=== PATIENT | male | born 1940 | race Caucasian/White ===

== ENCOUNTER → 2016-11-19 | Outpatient (CLI) | payer MEDICARE ==
[~2016-11-19] MED LIST: ACID CONTROL150 MG PO; ALPRAZOLAM0.5 MG PO; ASPIR 8181 MG PO; ATROVENT INH S2.5 ML INH; BROVANA15 MCG/2 M INH; CENTRUM SILVER1 EAC1 PO; COREG 3.125M3.125 MG PO; COUMADIN3 MG PO; COUMADIN7.5 MG PO; GLUCOPHAGE500 MG PO; IRON325 M1 PO; ISORDIL TAB 3030 MG PO; LASIX 40 MG TAB40 MG PO; LISINOPRIL2.5 MG PO; LORTAB 5-325 M1 EACH PO; MIRAPEX0.125 MG PO; PULMICORT0.5 MG/21 INH; SPIRONOLACTONE25 MG PO; VITAMIN C250 MG PO; ZOVIRAX 200 MG200 MG PO
[2016-11-19 12:58] LABS: HEMOGLOBIN 10.1 gm/dl (14.0-17.5); RED BLOOD COUNT 4.05 M/UL (4.20-5.50); WHITE BLOOD COUNT 6.7 K/UL (4.5-11.0)
[2016-11-19 13:24] LABS: BUN/CREATININE RATIO 22 (0-10)
== END ==
LOC: LAB 10:55
PROVIDERS: Internal Medicine Cardiovascular Disease
DX: I25.10 Atherosclerotic heart disease of native coronary artery without angina pectoris (principal); I25.5 Ischemic cardiomyopathy; I27.2 Other secondary pulmonary hypertension; I48.0 Paroxysmal atrial fibrillation; I48.1 Persistent atrial fibrillation; I50.22 Chronic systolic (congestive) heart failure; R06.02 Shortness of breath; J90 Pleural effusion, not elsewhere classified
CPT/HCPCS: 36415; 71020; 80048; 80061; 80076; 84439; 84443; 84481; 85025

== ENCOUNTER → 2016-11-29 | Outpatient (CLI) | payer MEDICARE | LOC: LAB 13:01 | PROVIDERS: Internal Medicine Cardiovascular Disease | DX: I25.10 Atherosclerotic heart disease of native coronary artery without angina pectoris (principal); I50.23 Acute on chronic systolic (congestive) heart failure; R06.02 Shortness of breath; I25.5 Ischemic cardiomyopathy; I48.0 Paroxysmal atrial fibrillation; I48.1 Persistent atrial fibrillation | CPT/HCPCS: 36415; 80048; 83880 ==

== ENCOUNTER → 2016-12-06 | Outpatient (CLI) | payer MEDICARE | LOC: HEART 5 11-22 09:00 | DX: I50.22 Chronic systolic (congestive) heart failure (principal); R06.02 Shortness of breath | CPT/HCPCS: 93306 ==